=== PATIENT | female | born 1985 | race Caucasian/White ===

== ENCOUNTER → 2016-05-29 | Outpatient (CLI) | payer OTHER ==
[2016-05-29 17:40] LABS: HEMATOCRIT 30.2 % (37-47)
[2016-05-29 18:39] LABS: URINE APPEARANCE CLOUDY (CLEAR); URINE BILIRUBIN NEG (NEG); URINE COLOR YELLOW; URINE EPITHELIAL CELL AUTO >30 /lpf (0-5); URINE NITRITE NEG (NEG); URINE PH 7.5 (4.5-7.5); URINE SPECIFIC GRAVITY 1.017 (1.000-1.030); UROBILINOGEN NEG (NEG)
[2016-05-29 18:42] LABS: GTGD 50 Grams
[2016-05-29 18:44] LABS: MANUAL MICROSCOPIC REQUIRED? NO; REVIEW REQ? YES
== END | disposition home or self-care (01) ==
LOC: C.LAB1850 16:05
PROVIDERS: ATTEND Obstetrics & Gynecology
DX: Z34.93 Encounter for supervision of normal pregnancy, unspecified, third trimester (principal)

== ENCOUNTER → 2016-07-22 | Outpatient (CLI) | payer OTHER | END | disposition home or self-care (01) | LOC: C.LABSPEC 15:35 | PROVIDERS: ATTEND Obstetrics & Gynecology | DX: Z34.93 Encounter for supervision of normal pregnancy, unspecified, third trimester (principal) ==

== ENCOUNTER → 2016-12-24 | Outpatient (CLI) | payer OTHER ==
[2016-12-24 15:08] LABS: BASO % 0.2 %; BASO ABS # 0.01 K/uL (0-0.2); EOS % 2.2 %; HEMATOCRIT 37.4 % (37-47); IG% 0.2 %; LYMPH % 29.1 %; LYMPH ABS # 1.71 K/uL (1.2-3.4); MEAN CORPUSCULAR HEMOGLOBIN 21.8 pg (25-34); MEAN CORPUSCULAR HGB CONC 31.6 g/dl (32-36); NEUT % 61.3 %; PLATELET COUNT 455 K/uL (130-400); RED BLOOD COUNT 5.42 M/uL (4.2-5.4); WHITE BLOOD COUNT 5.88 K/uL (4.8-10.8)
[2016-12-24 15:25] LABS: THYROID STIMULATING HORMONE 0.063 uIu/ml (0.300-4.500)
[2016-12-24 16:06] LABS: ANISOCYTOSIS PRESENT; COMPLETE YES; OVALOCYTES 1+; POLYCHROMASIA 1+
== END | disposition home or self-care (01) ==
LOC: C.LAB1850 13:51
PROVIDERS: ATTEND Obstetrics & Gynecology
DX: N92.6 Irregular menstruation, unspecified (principal)

== ENCOUNTER → 2017-03-02 | Outpatient (CLI) | payer OTHER ==
[2017-03-02 13:28] LABS: ALT/SGPT 14 U/L (12-78); AST/SGOT 5 U/L (15-37); BLOOD UREA NITROGEN 9 mg/dl (7-18); BUN/CREATININE RATIO 16.3 (10-20); CALCIUM 8.8 mg/dl (8.5-10.1); CARBON DIOXIDE 25 mmol/L (21-32); CHLORIDE 106 mmol/L (98-107); CREATININE 0.53 mg/dl (0.60-1.20); GLUCOSE 80 mg/dl (70-99); POTASSIUM 3.9 mmol/L (3.5-5.1); SODIUM 138 mmol/L (136-145)
[2017-03-02 13:44] LABS: ALB/GLOB RATIO 1.1 (0.9-2); ALKALINE PHOSPHATASE 85 U/L (45-117)
== END | disposition home or self-care (01) ==
LOC: C.LAB1850 11:00
PROVIDERS: ATTEND Internal Medicine Endocrinology, Diabetes & Metabolism
DX: O90.5 Postpartum thyroiditis (principal)

== ENCOUNTER → 2017-03-04 | Outpatient (CLI) | payer OTHER ==
--- NOTE | 2017-03-04 14:53 | DIAGNOSTIC IMAGING REPORT ---
SOFT TISS HEAD/NECK-THYROID CLINICAL HISTORY: 31 years-old Female presenting with E04.9 [id number]. TECHNIQUE: Real-time grayscale and color Doppler ultrasound imaging of the thyroid and base of the neck was performed. COMPARISON: None. FINDINGS: Right lobe: Normal echogenicity and echotexture. The right lobe of the thyroid measures 6.0 x 2.0 x 2.1 cm. 1) Hypoechoic nodule with somewhat irregular ill-defined margins measuring 1.1 x 1.1 x 1.0 cm at the lower pole. No calcifications. Internal and peripheral vascularity. (High suspicion pattern) Left lobe: Normal echogenicity and echotexture. The left lobe of the thyroid measures 5.7 x 1.7 x 2.2 cm. 1) Hypoechoic somewhat ill-defined posterior nodule at the lower pole measuring 1.5 x 1.0 x 1.1 cm, which appears to be contained within the thyroid rather than posterior to the left lobe. A focus of calcification may be present within this nodule. (High suspicion pattern) Isthmus: The isthmus measures 7 mm in thickness. No nodules. IMPRESSION: 1. Two suspicious nodules measuring at least 1 cm, one on the right and one on the left. Fine-needle aspiration of these lesions is recommended per the [place] [employer] criteria. Electronically signed by: Satish Higuera M.D. 03/04/2017 2:52 PM Dictated Date/Time: 03/04/2017 2:49 PM
== END | disposition home or self-care (01) ==
LOC: C.ULTR 14:01
PROVIDERS: ATTEND Internal Medicine Endocrinology, Diabetes & Metabolism
DX: E04.9 Nontoxic goiter, unspecified (principal)

== ENCOUNTER → 2017-09-03 | Outpatient (CLI) | payer OTHER ==
--- NOTE | 2017-09-03 17:34 | DIAGNOSTIC IMAGING REPORT ---
THYROID ULTRASOUND CLINICAL HISTORY: GOITER COMPARISON STUDY: Thyroid ultrasound March 04, 2017. TECHNIQUE: Sonography of the thyroid gland was performed. FINDINGS: As before, the gland is enlarged and markedly heterogeneous. The right lobe measures 6.4 x 2 x 2.1 cm and the left lobe measures 6.3 x 2.3 x 1.8 cm. Several thyroid nodules are again noted. Note is made of a taller than wide hypoechoic nodule with somewhat irregular margins within the midpole of the right thyroid lobe that measures 1.4 x 1.1 x 0.9 cm. Allowing for measurement variability, this is similar to exam of March 04, 2017. A few additional subcentimeter right lobe nodules do not meet criteria for biopsy. Note is also made of a hypoechoic 1.6 x 1.4 x 1 cm nodule within the posterior aspect of the lower pole of the left thyroid lobe which contains a coarse calcification. This is similar to prior exam as well. A few prominent central compartment lymph nodes are noted. IMPRESSION: 1. Several thyroid nodules, including a 1.6 cm left lobe nodule and a 1.4 cm right lobe nodule. These are similar to exam of March 04, 2017 but remain indeterminate. Ultrasound-guided fine needle aspiration of these nodules might be considered. 2. Enlarged, heterogeneous gland which is similar appearance to prior exam. Electronically signed by: Ford Zazueta M.D. 09/03/2017 5:33 PM Dictated Date/Time: 09/03/2017 5:25 PM
== END | disposition home or self-care (01) ==
LOC: C.ULTR 15:51
PROVIDERS: ATTEND Internal Medicine Endocrinology, Diabetes & Metabolism
DX: E04.9 Nontoxic goiter, unspecified (principal)

== ENCOUNTER → 2017-09-11 | Outpatient (CLI) | payer OTHER ==
--- NOTE | 2017-09-11 14:24 | DIAGNOSTIC IMAGING REPORT ---
ULTRASOUND-GUIDED FINE-NEEDLE ASPIRATION THYROID CLINICAL HISTORY: 1.6 cm left thyroid nodule. COMPARISON STUDY: Thyroid ultrasound 09/03/2017. PROCEDURE: The risks, benefits, and alternatives to the procedure were discussed with the patient. Written informed consent was obtained. The patient was placed supine in ultrasound, and the 1.6 cm nodule in the left lobe of the thyroid was localized by ultrasound and selected for fine needle aspiration. The left neck was prepped and draped in the usual sterile fashion. The nodule was aspirated under ultrasound guidance with 2 passes utilizing 25-gauge needles. Specimens were reviewed by the pathologist in real-time and deemed adequate for diagnosis. The patient tolerated the procedure well and left the department in satisfactory condition. IMPRESSION: Completed fine-needle aspiration of a left thyroid nodule as above. The above report was generated using voice recognition software. It may contain grammatical, syntax or spelling errors. Electronically signed by: Luis Guzman M.D. 09/11/2017 2:23 PM Dictated Date/Time: 09/11/2017 2:22 PM
--- NOTE | 2017-09-11 14:25 | DIAGNOSTIC IMAGING REPORT ---
ULTRASOUND-GUIDED FINE-NEEDLE ASPIRATION THYROID CLINICAL HISTORY: Right thyroid nodule. COMPARISON STUDY: Thyroid ultrasound 09/03/2017. PROCEDURE: The risks, benefits, and alternatives to the procedure were discussed with the patient. Written informed consent was obtained. The patient was placed supine in ultrasound, and the 1.4 cm nodule in the right lobe of the thyroid was localized by ultrasound and selected for fine needle aspiration. The right neck was prepped and draped in the usual sterile fashion. The nodule was aspirated under ultrasound guidance with 3 passes utilizing 25-gauge needles. Specimens were reviewed by the pathologist in real-time and deemed adequate for diagnosis. The patient tolerated the procedure well and left the department in satisfactory condition. IMPRESSION: Completed fine-needle aspiration of a right thyroid nodule as above. The above report was generated using voice recognition software. It may contain grammatical, syntax or spelling errors. Electronically signed by: Luis Guzman M.D. 09/11/2017 2:24 PM Dictated Date/Time: 09/11/2017 2:23 PM
== END | disposition home or self-care (01) ==
LOC: C.ULTR 12:54
PROVIDERS: ATTEND Internal Medicine Endocrinology, Diabetes & Metabolism
DX: E04.2 Nontoxic multinodular goiter (principal); C73 Malignant neoplasm of thyroid gland